=== PATIENT | male | born 1960 | race Caucasian/White ===

== ENCOUNTER 2020-07-11 21:15 | Emergency (ER) | payer OTHER ==
[2020-07-11] MEDS ORDERED: Sodium Chloride 0.9% 500 ML IV ONE (21:22)
[2020-07-11] MEDS ORDERED: Sodium Chloride 0.9% 10 ML Syringe FLUSH PRN (21:22)
--- NOTE | 2020-07-11 21:25 | EDM.PDOC ---
ED HPI GENERAL MEDICAL PROBLEM - General Chief Complaint: Neuro Symptoms/Deficits Stated Complaint: MEDICAL VIA [facility] Time Seen by Provider: 07/11/20 21:15 Source of Information: Reports: EMS, Old Records History Limitations: Reports: No Limitations - History of Present Illness INITIAL COMMENTS - FREE TEXT/NARRATIVE: Denny is a 60-year-old male coming by EMS from [place] after having strokelike symptoms. A code stroke was initiated at 2054 and the patient arrived to the ED at 2102. I met the patient in the ambulance garage and we went immediately to CT for a CT of the head without contrast. Initial NIH stroke score is 0. The story leading up to the ambulance being called as the patient has been in [place] since Wednesday and has abstained from alcohol during his stay. He has a history of chronic alcoholism with his choice being vodka. He was at an AA meeting today with 27 other people and the environment was very loud as they were playing some type of group game. He became quite anxious and left the meeting going to the nurses station. The [facility] nurse assessed the patient and felt that he had a facial droop. The patient does have a previous history of a stroke 2 years ago and had presented at that time with similar symptoms prompting the [place] nurse to call EMS. The patient's blood glucose was 120 reported by EMS and his Ary stroke score was negative. She was mildly hypertensive. He arrived somewhat anxious. On his arrival his symptoms had almost completely gone. ADD had some word finding difficulty and some numbness but will not elaborate beyond that. Seen at [place] had mentioned that she thought that 1 pupil was slightly larger than the other and it was on the same side that he had slight facial droop. - Related Data Allergies Allergy/AdvReac Type Severity Reaction Status Date / Time levofloxacin [From Levaquin] Allergy Numbness Verified 07/11/20 21:26 ED ROS GENERAL - Review of Systems Review Of Systems: See Below Constitutional: Reports: Diaphoresis HEENT: Reports: Other ([facility] nursing reported that the left pupil was dilated more than the right.) Respiratory: Reports: No Symptoms Cardiovascular: Reports: No Symptoms Endocrine: Reports: No Symptoms GI/Abdominal: Reports: No Symptoms : Reports: No Symptoms Musculoskeletal: Reports: No Symptoms Skin: Reports: No Symptoms Neurological: Reports: Numbness, Weakness (Possible left facial droop) Psychiatric: Reports: Anxiety Hematologic/Lymphatic: Reports: No Symptoms Immunologic: Reports: No Symptoms ED EXAM, NEURO - Physical Exam Exam: See Below Exam Limited By: No Limitations General Appearance: Alert, No Apparent Distress, Anxious Eye Exam: Bilateral Eye: EOMI, PERRL Throat/Mouth: Normal Inspection, Normal Lips, Normal Teeth, Normal Gums, Normal Oropharynx, Normal Voice, No Airway Compromise Head Exam: Atraumatic, Normocephalic Neck: Normal Inspection, Supple, Non-Tender, Full Range of Motion. No: Carotid Bruit, Lymphadenopathy (R), Lymphadenopathy (L) Respiratory/Chest: No Respiratory Distress, Lungs Clear, Normal Breath Sounds Cardiovascular: Normal Peripheral Pulses, Regular Rate, Rhythm, No Murmur GI/Abdominal: Normal Bowel Sounds, Soft, Non-Tender, No Organomegaly, No Abnormal Bruit (Male) Exam: No Hernia Neurological: Alert, Normal Mood/Affect, Normal Dorsiflexion, CN II-XII Intact, Normal Plantar Flexion, Normal Gait, Normal Reflexes, No Motor/Sensory Deficits, Oriented x 3 Back Exam: Normal Inspection, Full Range of Motion Extremities: Normal Inspection, Normal Range of Motion, No Pedal Edema Psychiatric: Normal Affect, Normal Mood Skin Exam: Warm, Dry, Intact, Normal Color #1 Interpretation EKG Date: 07/11/20 Time: 21:32 Rhythm: NSR Rate (Beats/Min): 72 [place]: Normal P-Wave: Present QRS: Normal ST-T: Normal QT: Normal Comparison: NA - No Prior EKG Course - Vital Signs Last Recorded V/S: Last Vital Signs Temp 36.7 C 07/11/20 21:22 Pulse 78 07/11/20 21:22 Resp 16 07/11/20 21:22 BP 158/96 H 07/11/20 21:22 Pulse Ox 99 07/11/20 21:22 - Orders/Labs/Meds Orders: Active Orders 24 hr Category Date Time Status Assess Neurological Status [RC] CONTINUOUS Care 07/11/20 21:22 Active Blood Glucose Check, Bedside [RC] STAT Care 07/11/20 21:22 Active Cardiac Monitoring [RC] CONTINUOUS Care 07/11/20 21:22 Active Communication Order [RC] STAT Care 07/11/20 21:22 Active EKG Documentation Completion [RC] ASDIRECTED Care 07/11/20 21:23 Active Height and Weight [RC] UPON Care 07/11/20 21:22 Active NIH Stroke Scale [RC] Q15M Care 07/11/20 21:22 Active NIH Stroke Scale [RC] STAT Care 07/11/20 21:22 Active Nursing Bedside Swallow Screen [RC] STAT Care 07/11/20 21:22 Active Oxygen Therapy, ED [RC] ASDIRECTED Care 07/11/20 21:22 Active Peripheral IV Care [RC] . DIRECTED Care 07/11/20 21:23 Active Vital Signs [RC] Q15M Care 07/11/20 21:22 Active Sodium Chloride 0.9% [Normal Saline] 500 ml Med 07/11/20 21:22 Active IV BOLUS Sodium Chloride 0.9% [Saline Flush] Med 07/11/20 21:22 Active 10 ml FLUSH ASDIRECTED PRN Peripheral IV Insertion Adult [OM.PC] Stat Oth 07/11/20 21:22 Ordered Peripheral IV Insertion Adult [OM.PC] Stat Oth 07/11/20 21:22 Ordered Resuscitation Status Stat Resus Stat 07/11/20 21:22 Ordered EKG 12 Lead [EK] Stat Ther 07/11/20 21:22 Ordered Medication Orders Sodium Chloride (Normal Saline) 500 mls @ 125 mls/hr IV BOLUS ONE Stop: 07/12/20 01:21 Sodium Chloride (Sodium Chloride 0.9% 10 Ml Syringe) 10 ml FLUSH ASDIRECTED PRN PRN Reason: Keep Vein Open Labs: Laboratory Tests 07/11/20 07/11/20 07/11/20 Range/Units 21:22 21:22 21:22 WBC 5.9 (4.5-11.0) K/uL RBC 4.01 L (4.30-5.90) M/uL Hgb 13.2 (12.0-15.0) g/dL Hct 40.3 (40.0-54.0) % MCV 101 H (80-98) fL MCH 33 H (27-31) pg MCHC 33 (32-36) % Plt Count 209 (150-400) K/uL Neut % (Auto) 53 (36-66) % Lymph % (Auto) 30 (24-44) % Pickett % (Auto) 16 H (2-6) % Eos % (Auto) 1 L (2-4) % Baso % (Auto) 1 (0-1) % PT 10.9 (9.5-12.0) sec INR 1.00 (0.80-1.20) APTT 23.8 L (27.0-36.0) sec Sodium 143 (140-148) mmol/L Potassium 4.3 (3.6-5.2) mmol/L Chloride 107 (100-108) mmol/L Carbon Dioxide 27 (21-32) mmol/L Anion Gap 9.2 (5.0-14.0) mmol/L BUN 19 H (7-18) mg/dL Creatinine 1.0 (0.8-1.3) mg/dL Est Cr Clr Drug Dosing 68.89 mL/min Estimated GFR (MDRD) > 60 (>60) Glucose 117 H (74-106) mg/dL Calcium 9.7 (8.5-10.1) mg/dL Total Bilirubin 0.2 (0.2-1.0) mg/dL AST 45 H (15-37) U/L ALT 95 H (12-78) U/L Alkaline Phosphatase 75 (46-116) U/L Troponin I < 0.017 (0.000-0.056) ng/mL Total Protein 6.4 (6.4-8.2) g/dL Albumin 3.8 (3.4-5.0) g/dL Globulin 2.6 (2.3-3.5) g/dL Albumin/Globulin Ratio 1.5 (1.2-2.2) Meds: Medications Generic Name Dose Route Start Last Admin Trade Name Teddy PRN Reason Stop Dose Admin Sodium Chloride 500 mls @ 125 mls/hr 07/11/20 21:22 Normal Saline IV 07/12/20 01:21 BOLUS ONE Sodium Chloride 10 ml 07/11/20 21:22 Sodium Chloride 0.9% 10 Ml Syringe FLUSH ASDIRECTED PRN Keep Vein Open - Radiology Interpretation Free Text/Narrative:: I reviewed the patient's CT of the head which shows no acute intracranial abnormality. He does have tiny punctate foci of high density in the basal ganglia likely related to tiny developing calcifications. He also has moderate cerebral and cerebellar atrophy likely due to his chronic alcohol use. - Re-Assessments/Exams Free Text/Narrative Re-Assessment/Exam: 07/11/20 22:10 I reviewed the patient's labs showing mild elevation in the AST and ALT but otherwise normal CBC and comprehensive metabolic panel. His troponin is negative. His CT of the head without contrast is negative. He is back to his baseline. The remainder of his labs are unremarkable. EKG shows normal sinus rhythm with a rate of 72 bpm but otherwise is normal. I do believe that the majority of his symptoms are related to an acute stress reaction to the environment he was in. Patient states he is very sensitive to loud noises and the AA meeting was quite both stress as they were playing a group game. At this time there is no evidence for TIA or acute stroke. I would not start any medications at this time. I do believe the patient is safe to go back to [place]. Departure - Departure Time of Disposition: 22:07 ([place] detox) Disposition: DC/Tfer to Other Clinical Impression: Anxiety in acute stress reaction, Chronic alcoholism - Discharge Information Referrals: PCP,None [Primary Care Provider] - Forms: ED Department Discharge Care Plan Goals: The patient's work-up has been negative for stroke. He is back to baseline. Based on his presenting complaints, this is likely an acute anxiety reaction to stressors related to the participation in the AA meeting today. I feel confident that the patient is capable of returning back to [place] without further incident. Sepsis Event Note (ED) - Focused Exam Vital Signs: Vital Signs Temp Pulse Resp BP Pulse Ox 07/11/20 21:22 36.7 C 78 16 158/96 H 99 - Problem List & Annotations (1) Anxiety in acute stress reaction SNOMED Code(s): 36755142 Code(s): F41.1 - GENERALIZED ANXIETY DISORDER; F43.0 - ACUTE STRESS REACTION Status: Acute Priority: High Current Visit: Yes (2) Chronic alcoholism SNOMED Code(s): 0458790 Code(s): F10.20 - ALCOHOL DEPENDENCE, UNCOMPLICATED Status: Chronic Priority: High Current Visit: Yes - Problem List Review Problem List Initiated/Reviewed/Updated: Yes - My Orders Last 24 Hours: My Active Orders 07/11/20 21:22 Assess Neurological Status [RC] CONTINUOUS Blood Glucose Check, Bedside [RC] STAT Cardiac Monitoring [RC] CONTINUOUS Communication Order [RC] STAT Height and Weight [RC] UPON NIH Stroke Scale [RC] Q15M NIH Stroke Scale [RC] STAT Nursing Bedside Swallow Screen [RC] STAT Oxygen Therapy, ED [RC] ASDIRECTED Vital Signs [RC] Q15M Sodium Chloride 0.9% [Normal Saline] 500 ml IV BOLUS Sodium Chloride 0.9% [Saline Flush] 10 ml FLUSH ASDIRECTED PRN Peripheral IV Insertion Adult [OM.PC] Stat Peripheral IV Insertion Adult [OM.PC] Stat Resuscitation Status Stat EKG 12 Lead [EK] Stat 07/11/20 21:23 EKG Documentation Completion [RC] ASDIRECTED Peripheral IV Care [RC] . DIRECTED - Assessment/Plan Last 24 Hours: My Active Orders 07/11/20 21:22 Assess Neurological Status [RC] CONTINUOUS Blood Glucose Check, Bedside [RC] STAT Cardiac Monitoring [RC] CONTINUOUS Communication Order [RC] STAT Height and Weight [RC] UPON NIH Stroke Scale [RC] Q15M NIH Stroke Scale [RC] STAT Nursing Bedside Swallow Screen [RC] STAT Oxygen Therapy, ED [RC] ASDIRECTED Vital Signs [RC] Q15M Sodium Chloride 0.9% [Normal Saline] 500 ml IV BOLUS Sodium Chloride 0.9% [Saline Flush] 10 ml FLUSH ASDIRECTED PRN Peripheral IV Insertion Adult [OM.PC] Stat Peripheral IV Insertion Adult [OM.PC] Stat Resuscitation Status Stat EKG 12 Lead [EK] Stat 07/11/20 21:23 EKG Documentation Completion [RC] ASDIRECTED Peripheral IV Care [RC] . DIRECTED
--- NOTE | 2020-07-11 21:46 | CRLCT ---
DATE: 07/11/2020. CLINICAL HISTORY: Patient with acute neurological deficit. TECHNIQUE: Standard helical CT image acquisition of the brain was performed. COMPARISON: Available. FINDINGS: There is no intracranial hemorrhage. No extra-axial collection, mass effect, or midline shift. Reid-white matter differentiation is preserved. Multifocal intracranial atherosclerotic disease. Ventricles are normal in size and morphology for patient age. The calvarium is unremarkable. Note is made of dysconjugate gaze. The orbits are otherwise unremarkable. The paranasal sinuses are unremarkable. The mastoid air cells are unremarkable. The soft tissues are unremarkable. IMPRESSION: No CT evidence of acute intracranial abnormality. More specifically, no evidence of acute intracranial hemorrhage. Please note that all CT scans at this facility use dose modulation, iterative reconstruction, and/or weight-based dosing when appropriate to reduce radiation dose to as low as reasonably achievable. Dictated by Rg Fried MD @ Jul 11 2020 11:12PM Signed by Dr. Rg Fried @ Jul 11 2020 11:15PM
== END 2020-07-11 23:18 | disposition other institution (70) ==
LOC: JP.ED 21:15
DX: F41.1 Generalized anxiety disorder (principal); F43.0 Acute stress reaction; F10.20 Alcohol dependence, uncomplicated; Z88.8 Allergy status to other drugs, medicaments and biological substances
CPT/HCPCS: 36415; 70450; 80053; 84484; 85025; 85610; 85730; 93005; 99285; J7040